=== PATIENT | female | born 1955 | race Caucasian/White ===

== ENCOUNTER → 2022-10-25 | Outpatient (CLI) | payer MEDICARE ==
[~2022-10-25] MED LIST: ESOM20CA34 PO; METO-408 PO; PROM25TA7 PO; [UNRECOGNIZED DRUG - OTHER] OD; [UNRECOGNIZED DRUG - OTHER] OS
[2022-10-25 12:08] LABS: BASOPHILS % (AUTO) 0.8 % (0.0-5.0); EOSINOPHILS % (AUTO) 1.5 % (0.0-8.0); HEMATOCRIT 45.9 % (36-48); LYMPHOCYTES % (AUTO) 30.3 % (21.0-51.0); MEAN CORPUSCULAR HEMOGLOBIN 29.9 pg (27.0-33.0); MEAN CORPUSCULAR VOLUME 93.3 fL (79-99); MONOCYTES % (AUTO) 6.6 % (3.0-13.0); NEUTROPHILS % (AUTO) 60.7 % (40.0-77.0); PLATELET COUNT (AUTO) 215 K/uL (130-400); RED BLOOD CELL COUNT(AUTO) 4.92 MIL/uL (4.00-5.50); RED CELL DISTRIBUTION WIDTH 13.9 % (11.0-15.5); WHITE BLOOD COUNT (AUTO) 7.5 K/uL (4.8-10.8)
[2022-10-25 12:21] LABS: INR 1.02 (0.85-1.15); PROTHROMBIN TIME 11.1 SEC (9.6-11.6)
[2022-10-25 12:27] LABS: ALBUMIN 3.8 g/dL (3.5-5.0); CREATININE 1.1 mg/dL (0.5-1.5); TOTAL PROTEIN, SERUM 7.2 g/dL (6.0-8.3)
== END | disposition home or self-care (01) ==
LOC: LAB 11:43
PROVIDERS: ATTEND Internal Medicine
DX: Z01.812 Encounter for preprocedural laboratory examination (principal); R93.2 Abnormal findings on diagnostic imaging of liver and biliary tract
CPT/HCPCS: 36415; 80053; 82105; 85025; 85610

== ENCOUNTER → 2022-10-28 | Outpatient (CLI) | payer MEDICARE ==
[~2022-10-28] MED LIST changes: +IOHEXOL 350 MG/ML 100ML INFUS..BTL IV ONE
== END | disposition home or self-care (01) ==
LOC: RAH 07:17 → EDSTATUS 08:00
PROVIDERS: ATTEND Internal Medicine
DX: I51.7 Cardiomegaly (principal); R16.0 Hepatomegaly, not elsewhere classified; R93.3 Abnormal findings on diagnostic imaging of other parts of digestive tract; R93.2 Abnormal findings on diagnostic imaging of liver and biliary tract
CPT/HCPCS: 74178; Q9967

== ENCOUNTER 2023-01-07 07:21 | Day surgery (SDC) | payer MEDICARE ==
[2022-12-31 10:21] LABS: BASOPHILS # (AUTO) 0.07 K/uL (0.00-0.20); BASOPHILS % (AUTO) 0.8 % (0.0-5.0); EOSINOPHILS # (AUTO) 0.12 K/uL (0.00-0.70); EOSINOPHILS % (AUTO) 1.4 % (0.0-8.0); HEMATOCRIT 46.7 % (36-48); IMMATURE GRANULOCYTE ABSOLUTE 0.06 K/uL (0-1); LYMPHOCYTES # (AUTO) 1.8 K/uL (1.0-4.8); MEAN CORPUSCULAR HEMOGLOBIN 29.8 pg (27.0-33.0); MEAN CORPUSCULAR HGB CONC 32.1 g/dL (32.0-36.0); MEAN CORPUSCULAR VOLUME 92.7 fL (79-99); MONOCYTES # (AUTO) 0.5 K/uL (0.1-1.0); NEUTROPHILS # (AUTO) 6.3 K/uL (1.8-7.7); NEUTROPHILS % (AUTO) 71.1 % (40.0-77.0); PLATELET COUNT (AUTO) 208 K/uL (130-400); RED BLOOD CELL COUNT(AUTO) 5.04 MIL/uL (4.00-5.50); RED CELL DISTRIBUTION WIDTH 15.7 % (11.0-15.5); WHITE BLOOD COUNT (AUTO) 8.8 K/uL (4.8-10.8)
[2022-12-31 10:36] VITALS: BP 122/65; PULSE 68; RESP 14
[2022-12-31 10:49] LABS: ALBUMIN 3.3 g/dL (3.5-5.0); BILIRUBIN,TOTAL 0.6 mg/dL (0.2-1.0); CREATININE 1.1 mg/dL (0.5-1.5); POTASSIUM 4.9 mmol/L (3.5-5.1); THYROID STIMULATING HORMONE 1.75 uIU/mL (0.36-3.74); TOTAL PROTEIN, SERUM 6.8 g/dL (6.0-8.3)
[2023-01-07] VITALS (13 sets, daily range): BP systolic 96–122; BP diastolic 44–70; PULSE 44–76; RESP 11–22
[~2023-01-07] VITALS: Ht 185.4 cm; Wt 77.6 kg
[~2023-01-07 07:21] MED LIST changes: +AMIO200T68 PO; +APIX5TAB PO; +ATOR10TA69 PO; +CHOL200074 PO; -ESOM20CA34 PO; -IOHEXOL 350 MG/ML 100ML INFUS..BTL IV ONE; +MAGN500C4 PO; -METO-408 PO; +METO25TA6 PO; -PROM25TA7 PO; +XALA2.5OS OS; -[UNRECOGNIZED DRUG - OTHER] OD; -[UNRECOGNIZED DRUG - OTHER] OS
[2023-01-07] MEDS ORDERED: 0.9%NACL 1000ML 1,000 ML IV ONE (07:43)
[2023-01-07] MEDS ORDERED: PROPOFOL 10 MG/ML 20ML VIAL IV ONE (10:20)
[2023-01-08] MEDS ORDERED: AMIO200T68 PO (17:37)
[2023-01-08] MEDS ORDERED: MAGN500C4 PO (17:37)
[2023-01-08] MEDS ORDERED: CHOL200012 PO (17:37)
[2023-01-08] MEDS ORDERED: APIX5TAB PO (17:37)
[2023-01-08] MEDS ORDERED: METO25TA6 PO (17:37)
[2023-01-11] MEDS ORDERED: DOXY100T2 PO (10:34)
[2023-01-11] MEDS ORDERED: FURO20TA4 PO (10:34)
[2023-01-11] MEDS ORDERED: ALBU6.7H14 IH (10:34)
[2023-01-11] MEDS ORDERED: AMOX1TAB16 PO (10:34)
[2023-01-11] MEDS ORDERED: PRED20TA3 PO (10:34)
[2023-01-11] MEDS ORDERED: IPRNEB IH (10:34)
[2023-01-11] MEDS ORDERED: BUDE10.22 IH (15:47)
== END 2023-01-07 11:35 | disposition home or self-care (01) ==
LOC: DAH 07:21
PROVIDERS: ATTEND Internal Medicine Cardiovascular Disease
DX: I48.19 Other persistent atrial fibrillation (principal); Z20.822 Contact with and (suspected) exposure to COVID-19; I34.0 Nonrheumatic mitral (valve) insufficiency; I44.7 Left bundle-branch block, unspecified; I11.9 Hypertensive heart disease without heart failure; I48.92 Unspecified atrial flutter; I49.1 Atrial premature depolarization; E78.5 Hyperlipidemia, unspecified; I25.10 Atherosclerotic heart disease of native coronary artery without angina pectoris; Z90.710 Acquired absence of both cervix and uterus; Z90.89 Acquired absence of other organs; Z98.890 Other specified postprocedural states; Z87.891 Personal history of nicotine dependence; Z88.3 Allergy status to other anti-infective agents; Z88.8 Allergy status to other drugs, medicaments and biological substances
CPT/HCPCS: 87426; 84443; 80053; 85025; 36415; 92960; 93005 ×2; J7030; J2704; A4615; A4215; A4222; A4221; A4663; A4216; A4606; A4223 ×3; 99156; J3490